=== PATIENT | female | born 1950 | race Caucasian/White ===

== ENCOUNTER → 2019-02-06 | Outpatient (CLI) | payer MEDICARE, OTHER ==
[~2019-02-06] VITALS: Ht 160 cm; Wt 91.6 kg
[~2019-02-06] MED LIST: CATHETER FLUSH 10 ML SYR IV PRN; REGADENOSON 0.4 MG/5 ML SYR (LEXISCAN) IV ONE
--- NOTE | 2019-02-06 18:27 | STRESS TEST ---
DATE OF SERVICE: 02/06/2019 LEXISCAN MYOVIEW STRESS TEST REPORT REFERRING PHYSICIAN: Amrit Locke DO. Baseline heart rate is 72. Baseline blood pressure is 127/67. Baseline EKG is sinus rhythm with no ischemic changes. In summary, the patient was initially scheduled for exercise Myoview stress test. She was injected with 10.95 mCi of technetium-99 Myoview. She was unable to exercise beyond 2 minutes on standard Shay protocol. Test was converted to Lexiscan, she received 0.4 mg of Lexiscan followed by 31.2 mCi of technetium-99 Myoview. Throughout the test, there were no EKG changes. The resting and stressed images were reviewed and compared in the short axis, horizontal long axis, and vertical long axis views. Review of the images showed good radiotracer uptake with no significant ischemia or infarction. SSS is 0. TID value 0.89. On the gated images, the left ventricle is normal in size with normal contractility. Calculated ejection fraction is 65%. CONCLUSION: 1. The patient tolerated Lexiscan well. 2. No ischemia or infarction on SPECT images. 3. Normal left ventricular size with normal contractility. Calculated ejection fraction is 65%. Job ID: [id number] DocumentID: [id number] Dictated Date: 02/06/2019 15:50:34 Bobbin Winder Tender Date: 02/06/2019 18:26:53 Dictated By: LUIS ENRIQUE GHOTRA MD
== END ==
LOC: CARD 09:46
PROVIDERS: ATTEND Internal Medicine Cardiovascular Disease
DX: R07.9 Chest pain, unspecified (principal); R06.09 Other forms of dyspnea; E66.8 Other obesity; R00.2 Palpitations; E11.9 Type 2 diabetes mellitus without complications; E78.2 Mixed hyperlipidemia; I10 Essential (primary) hypertension
CPT/HCPCS: 78452; 93017; 93306

== ENCOUNTER → 2019-03-07 | Outpatient (CLI) | payer MEDICARE, OTHER ==
[~2019-03-07] MED LIST changes: -REGADENOSON 0.4 MG/5 ML SYR (LEXISCAN) IV ONE
--- NOTE | 2019-03-07 15:06 | Diagnostic Imaging Report ---
INDICATION: Abdominal pain. TECHNIQUE: Acquisitions were acquired of the abdomen after administration of 4.33 mCi of technetium-99m Choletec. Ejection fraction was calculated after patient ingested 8 ounces of Ensure 45 minutes into the exam. FINDINGS: There is homogeneous uptake of isotope throughout the liver. There is significant accumulation within the gallbladder by 30 minutes. There is free flow of activity in the small bowel. The ejection fraction was calculated to be 68.3%. IMPRESSION: Normal hepatobiliary scan and ejection fraction. Dictated by: Dictated on workstation # [id number]
== END ==
LOC: CARD 11:57
PROVIDERS: ATTEND Physician Assistant
DX: R10.11 Right upper quadrant pain (principal)
CPT/HCPCS: 78227